=== PATIENT | female | born 1990 | race African-American/Black ===

== ENCOUNTER 2020-11-20 05:49 | Emergency (ER) | payer MEDICAID ==
[~2020-11-20] VITALS: Ht 165.1 cm; Wt 71.0 kg
[~2020-11-20 05:49] MED LIST: DOCU-131 PO; HYDR-2214 PO; IBUP-1222 PO
--- NOTE | 2020-11-20 06:29 | NUR ---
PT CAME INTO ED TODAY VIA EMS D/T 3 DAYS OF FEVER, CHILLS, HEMOPTYSIS AND ABDOMINAL PAIN, STOMACH PAIN IS ACROSS UPPER QUADRANTS. PT REPORTS RECENT POSITIVE TEST. . STATES THIS FEELS SIMILAR TO PREVIOUS PREGNANCIES. PT BROTHER AT . PT STILL VOMITTING AT THIS TIME. BED IN LOWEST, RAILS ENGAGED, CALL LIGHT ON LAP, WCTM. 4MG ZOFRAN AND 12.5 PHENERGAN ENROUTE
[2020-11-20] MEDS ORDERED: SODIUM CHLORIDE 0.9% 1,000ML IVBOLUS ONE (06:30)
[2020-11-20] MEDS ORDERED: SODIUM CHLORIDE FLUSH 10ML SYR IVF ONE (06:30)
--- NOTE | 2020-11-20 06:50 | NUR ---
REPORT TO CHARLENE MARRERO, PT CARE TRANSFERRED AT THIS TIME.
[2020-11-20 07:01] LABS: BASOPHILS % (AUTO) 0 % (0-1); EOSINOPHILS % (AUTO) 0 % (1-7); LYMPHOCYTES % (AUTO) 11 % (22-44); MEAN CORPUSCULAR HEMOGLOBIN 27.1 pg (27.0-34.8); MEAN CORPUSCULAR HGB CONC 33.5 g/dL (32.4-35.8); MEAN PLATELET VOLUME 7.8 fL (7.4-10.4); MONOCYTES % (AUTO) 5 % (2-9); NEUTROPHILS % (AUTO) 83 % (42-75); PLATELET COUNT 307 x10^3/uL (130-400); RED CELL DISTRIBUTION WIDTH 15.4 % (9.6-15.2)
[2020-11-20 07:03] LABS: ALANINE AMINOTRANSFERASE 24 U/L (12-78); ALBUMIN 3.7 g/dL (3.4-5.0); ANION GAP 9 mmol/L (5-15); CHLORIDE 103 mmol/L (98-107); CREATININE 0.67 mg/dL (0.55-1.02)
[2020-11-20 07:03] LABS: MICROSCOPIC INDICATED
[2020-11-20 07:04] LABS: MD NO
--- NOTE | 2020-11-20 07:09 | NUR ---
REPORT FROM ZORA, ASSUME CARE OF PT AT THIS TIME.
[2020-11-20 07:20] LABS: ALKALINE PHOSPHATASE 67 U/L (45-117); BILIRUBIN,TOTAL 0.4 mg/dL (0.2-1.0); TOTAL PROTEIN 7.8 g/dL (6.4-8.2)
--- NOTE | 2020-11-20 07:31 | NUR ---
ALL RESULTS BACK, PT FOR RECHECK.
[2020-11-20] MEDS ORDERED: CEFTRIAXONE 1,000 MG in DEXTROSE 5% 50 ML IVPB ONE (08:30)
--- NOTE | 2020-11-20 08:45 | NUR ---
ADD ON US AND MED ORDERS.
--- NOTE | 2020-11-20 09:01 | NUR ---
PT SLEEPING, NAD. PT INFORMED OF US AND MED ORDER. ROCEPHIN INFUSING PER ERP ORDER. FAMILY AT BS. VSS/UPDATED IN COMPUTER
--- NOTE | 2020-11-20 09:19 | NUR ---
PT TO US
[2020-11-20 10:18] VITALS: BP 131/83
--- NOTE | 2020-11-20 10:19 | NUR ---
TASK RN: Patient given discharge instructions and RX, they have confirmed that they understand the instructions. Patient ambulatory with steady gait.
== END 2020-11-20 10:21 | disposition home or self-care (01) ==
LOC: ED 09:55
DX: O23.11 Infections of bladder in pregnancy, first trimester (principal); O21.8 Other vomiting complicating pregnancy; O99.331 Smoking (tobacco) complicating pregnancy, first trimester; F17.210 Nicotine dependence, cigarettes, uncomplicated; Z3A.13 13 weeks gestation of pregnancy
CPT/HCPCS: 36415; 76801; 80053; 81001; 83690; 84702; 85025; 87086; 96361; 96374; 99284; J0696; J7030